=== PATIENT | female | born 1940 | race Caucasian/White ===

== ENCOUNTER → 2017-06-03 | Outpatient (CLI) | payer MEDICARE, BC | END | disposition home or self-care (01) | LOC: CFH 14:33 | PROVIDERS: ATTEND Family Medicine | DX: I35.1 Nonrheumatic aortic (valve) insufficiency (principal); I10 Essential (primary) hypertension; E78.5 Hyperlipidemia, unspecified | CPT/HCPCS: 93306 ==

== ENCOUNTER 2017-12-21 23:33 | Emergency (ER) | payer MEDICARE, BC ==
[~2017-12-21] VITALS: Ht 165.1 cm; Wt 62.9 kg
[2017-12-21 23:34] VITALS: BP 163/79
== END 2017-12-22 01:37 | disposition home or self-care (01) ==
LOC: ED 23:59
DX: S06.0X0A Concussion without loss of consciousness, initial encounter (principal); S00.03XA Contusion of scalp, initial encounter; I10 Essential (primary) hypertension; Z90.49 Acquired absence of other specified parts of digestive tract; Z88.5 Allergy status to narcotic agent; W01.0XXA Fall on same level from slipping, tripping and stumbling without subsequent striking against object, initial encounter; Y93.89 Activity, other specified; Y99.8 Other external cause status; Y92.009 Unspecified place in unspecified non-institutional (private) residence as the place of occurrence of the external cause
CPT/HCPCS: 70450; 99284

== ENCOUNTER → 2019-04-21 | Outpatient (CLI) | payer MEDICARE | END | disposition home or self-care (01) | LOC: LAB 11:59 | PROVIDERS: ATTEND Family Medicine | DX: R93.89 Abnormal findings on diagnostic imaging of other specified body structures (principal); R05 Cough | CPT/HCPCS: 36415; 86480 ==

== ENCOUNTER 2019-04-28 10:13 | Outpatient (CLI) | payer MEDICARE ==
[2019-04-28] MEDS ORDERED: OMNIPAQUE 350 MG/ML, 75ML BOTTLE ONE (16:12)
== END 2019-04-28 23:59 | disposition home or self-care (01) ==
LOC: CFH 10:13
PROVIDERS: ATTEND Family Medicine
DX: J84.9 Interstitial pulmonary disease, unspecified (principal); J84.10 Pulmonary fibrosis, unspecified; J98.4 Other disorders of lung; J47.9 Bronchiectasis, uncomplicated; I51.7 Cardiomegaly; I70.0 Atherosclerosis of aorta; K44.9 Diaphragmatic hernia without obstruction or gangrene; M85.88 Other specified disorders of bone density and structure, other site; M48.55XA Collapsed vertebra, not elsewhere classified, thoracolumbar region, initial encounter for fracture; Z90.49 Acquired absence of other specified parts of digestive tract
CPT/HCPCS: 71260; Q9967

== ENCOUNTER 2019-05-23 08:47 | Outpatient (CLI) | payer MEDICARE | END 2019-05-23 23:59 | disposition home or self-care (01) | LOC: RAD 08:47 | PROVIDERS: ATTEND Internal Medicine | DX: K44.9 Diaphragmatic hernia without obstruction or gangrene (principal); K21.9 Gastro-esophageal reflux disease without esophagitis; J84.10 Pulmonary fibrosis, unspecified; M81.0 Age-related osteoporosis without current pathological fracture; E78.5 Hyperlipidemia, unspecified; I10 Essential (primary) hypertension; Z90.49 Acquired absence of other specified parts of digestive tract | CPT/HCPCS: 74220 ==

== ENCOUNTER 2020-01-06 21:02 | Emergency (ER) | payer MEDICARE ==
[~2020-01-06] VITALS: Ht 165.1 cm; Wt 69.0 kg
--- NOTE | 2020-01-06 21:36 | NUR ---
THIS IS A 79 YO FEMALE COMING IN FOR BILATERAL UQ ABD PAIN FOR 2 HOURS WITH NAUSEA OVER THE LAST 2 DAYS. PATIENT ALSO STATES SHE HAS HAD A DECREASED APPETITE OVER THE PAST COUPLE MONTHS, STATES ALL SHE ATE TODAY WAS "I ATE SOME RICE AT LUNCH AND A COUPLE GRAPES". A&OX4, VSS, NADN AT THIS TIME. CALL KEILA LEVINE TO ROOM FOR NAN
[2020-01-06] MEDS ORDERED: SODIUM CHLORIDE FLUSH 10ML SYR IVF ONE (22:00)
--- NOTE | 2020-01-06 22:02 | NUR ---
PATIENT AMBULATORY WITH STEADY GAIT TO RESTROOM TO OBTAIN UA
[2020-01-06 22:04] LABS: BASOPHILS # (AUTO) 0.05 x10^3/uL (0-0.1); BASOPHILS % (AUTO) 1 % (0-1); EOSINOPHILS # (AUTO) 0.11 x10^3/uL (0-0.4); EOSINOPHILS % (AUTO) 1 % (1-7); LYMPHOCYTES # (AUTO) 4.16 x10^3/uL (1-3.4); LYMPHOCYTES % (AUTO) 39 % (22-44); MD NO; MEAN CORPUSCULAR HEMOGLOBIN 27.6 pg (27.0-34.8); MEAN CORPUSCULAR HGB CONC 32.3 g/dL (32.4-35.8); MEAN PLATELET VOLUME 8.4 fL (7.4-10.4); MONOCYTES # (AUTO) 0.86 x10^3/uL (0.2-0.8); MONOCYTES % (AUTO) 8 % (2-9); NEUTROPHILS # (AUTO) 5.41 x10^3/uL (1.8-6.8); NEUTROPHILS % (AUTO) 51 % (42-75); PLATELET COUNT 273 x10^3/uL (130-400); RED BLOOD COUNT 4.79 x10^6/uL (3.82-5.3); RED CELL DISTRIBUTION WIDTH 13.9 % (9.6-15.2)
--- NOTE | 2020-01-06 22:11 | NUR ---
UA COLLECTED AND WALKED TO LAB
[2020-01-06 22:14] LABS: ALANINE AMINOTRANSFERASE 21 U/L (12-78); ALBUMIN 3.3 g/dL (3.4-5.0); ANION GAP 4 mmol/L (5-15); CALCIUM 8.8 mg/dL (8.5-10.1); CHLORIDE 105 mmol/L (98-107); CREATININE 0.76 mg/dL (0.55-1.02)
[2020-01-06 22:18] LABS: MICROSCOPIC AUTO
[2020-01-06 22:18] LABS: ALKALINE PHOSPHATASE 52 U/L (45-117); BILIRUBIN,TOTAL 0.4 mg/dL (0.2-1.0); TOTAL PROTEIN 7.4 g/dL (6.4-8.2); TROPONIN I < 0.015 ng/mL (0.000-0.045)
[2020-01-06] MEDS ORDERED: CEFDINIR 300 MG CAPSULE PO ONE (23:30)
[2020-01-06] MEDS ORDERED: CEFDINIR 300 MG CAPSULE ONE (23:30)
--- NOTE | 2020-01-06 23:41 | NUR ---
PATIENT MEDICATED PER, GIVEN DISCHARGE INSTRUCTIONS AND CONFIRMED THAT THEY UNDERSTAND INSTRUCTIONS AND FOLLOW UP CARE. AMBULATORY WITH STEADY GAIT TO DISCHARGE.
[2020-01-06 23:44] VITALS: BP 138/84
== END 2020-01-06 23:45 | disposition home or self-care (01) ==
LOC: ED 21:32
DX: N30.00 Acute cystitis without hematuria (principal); R10.13 Epigastric pain; E78.5 Hyperlipidemia, unspecified; R94.31 Abnormal electrocardiogram [ECG] [EKG]; Z90.49 Acquired absence of other specified parts of digestive tract
CPT/HCPCS: 36415; 71045; 80053; 81001; 83690; 84484; 85025; 87086; 93005; 99285